=== PATIENT | female | born 1970 ===

== ENCOUNTER 2020-04-04 15:26 | Inpatient (IN) | payer OTHER ==
[2020-04-04 16:06] LABS: Basophils # (Auto) 0.1 K/mm3 (0.0-0.1); Basophils % (Auto) 1.2 % (0.0-1.8); Eosinophils % (Auto) 0.4 % (0.0-4.3); Hematocrit 26.7 % (30.3-42.9); Hemoglobin 7.9 gm/dl (10.1-14.3); Lymphocytes # (Auto) 1.7 K/mm3 (1.2-5.4); Lymphocytes % (Auto) 23.1 % (13.4-35.0); Mean Corpuscular HGB Conc 30 % (30-34); Monocytes # (Auto) 0.6 K/mm3 (0.0-0.8); Monocytes % (Auto) 7.9 % (0.0-7.3); Platelet Count 357 K/mm3 (140-440); Red Blood Count 4.37 M/mm3 (3.65-5.03); Red Cell Distribution Width 19.9 % (13.2-15.2)
[2020-04-04 16:08] LABS: Bilirubin,Urine NEG (Negative); Blood,Urine NEG (Negative); Color,Urine Yellow (Yellow); Protein,Urine <15 mg/dL mg/dL (Negative); RBC,Urine < 1.0 /HPF (0.0-6.0); Urobilinogen,Urine < 2.0 mg/dL (<2.0); WBC,Urine < 1.0 /HPF (0.0-6.0)
[2020-04-04 16:11] LABS: Mean Corpuscular Volume 61 fl (79-97)
[2020-04-04 16:32] LABS: Alanine Aminotransferase 15 units/L (7-56); Albumin 4.5 g/dL (3.9-5); BUN/Creatinine Ratio 15; Blood Urea Nitrogen 6 mg/dL (7-17); Calcium 10.8 mg/dL (8.4-10.2); Hemolysis Index 5
[2020-04-04] MEDS ORDERED: HYOSCYAMINE SUBL 0.125 MG TAB SL ONE (18:35)
[2020-04-04] MEDS ORDERED: SODIUM CHLORIDE 0.9% 1000 ML 1,000 ML IV ONE (18:35)
[2020-04-04] MEDS ORDERED: ONDANSETRON 4 MG/2 ML INJ IV ONE (18:35)
[2020-04-04] MEDS ORDERED: POTASSIUM CHLORIDE ER 20 MEQ TAB PO ONE (18:36)
--- NOTE | 2020-04-04 19:40 | Emergency Department Report ---
ED Abdominal Pain HPI - General Chief Complaint: Abdominal Pain Stated Complaint: ABD/RIB PAIN Time Seen by Provider: 04/04/20 18:15 Source: patient, implementation lead Mode of arrival: Ambulatory Limitations: Language Barrier - History of Present Illness Initial Comments: Anguillan interpretation by Sri patient regional sales representative Patient is a 49-year-old female presents emergency room with complaints of right upper quadrant abdominal pain that radiates to her back that began at 11 PM last night. She has associated nausea and vomiting. She denies any diarrhea, fever, urinary symptoms. She denies any history of issues with her gallbladder. She denies any past medical history. She denies any history of anemia. She denies any hematochezia, hematemesis, melena. She states her last menstrual cycle was March 21. She states that occasionally she does have heavy menstrual cycles. - Related Data Allergies Allergy/AdvReac Type Severity Reaction Status Date / Time No Known Allergies Allergy Verified 04/04/20 15:33 ED Review of Systems ROS: Stated complaint: ABD/RIB PAIN Other details as noted in HPI Comment: All other systems reviewed and negative ED Past Medical Hx - Past Medical History Previous Medical History?: No - Surgical History Past Surgical History?: No - Social History Smoking Status: Never Smoker Substance Use Type: None ED Physical Exam - General Limitations: Language Barrier General appearance: alert, in no apparent distress - Head Head exam: Present: atraumatic, normocephalic - Eye Eye exam: Present: normal appearance - ENT ENT exam: Present: mucous membranes moist - Respiratory Respiratory exam: Present: normal lung sounds bilaterally. Absent: respiratory distress, wheezes, rales, rhonchi, stridor, chest wall tenderness, accessory muscle use, decreased breath sounds, prolonged expiratory - Cardiovascular Cardiovascular Exam: Present: regular rate, normal rhythm, normal heart sounds. Absent: systolic murmur, diastolic murmur, rubs, gallop - GI/Abdominal GI/Abdominal exam: Present: soft, tenderness (RUQ), normal bowel sounds. Absent: distended, guarding, rebound, rigid - Neurological Exam Neurological exam: Present: alert, oriented X3 - Psychiatric Psychiatric exam: Present: normal affect, normal mood - Skin Skin exam: Present: warm, dry, intact ED Course Vital Signs 04/04/20 04/04/20 15:30 22:44 Temperature 98.1 F 98.6 F Pulse Rate 96 H 84 Respiratory 13 18 Rate Blood Pressure 148/70 Blood Pressure 124/71 [Right] O2 Sat by Pulse 100 98 Oximetry - Consultations Consultation #1: 04/04/20 20:[address] Irizarry, general surgeon who states to admit patient to the hospitalist service and she will consult on patient in the morning, she states that if her gallbladder does need surgical removal it will most likely not be until 04/06/2020, she has no further recommendations at this time, no antibiotics recommended at this time 04/04/20 20:[address] Christie hospitalist she states that she is in a CODE BLUE with another patient and will call back 04/04/20 21:[address] Christie hospitalist she will accept and resume care of patient, will admit to the hospital ED Medical Decision Making - Lab Data Result diagrams: 04/04/20 15:50 04/04/20 15:50 Lab Results 04/04/20 04/04/20 04/04/20 Range/Units 15:50 15:50 15:50 WBC 7.4 (4.5-11.0) K/mm3 RBC 4.37 (3.65-5.03) M/mm3 Hgb 7.9 L (10.1-14.3) gm/dl Hct 26.7 L (30.3-42.9) % MCV 61 L (79-97) fl MCH 18 L (28-32) pg MCHC 30 (30-34) % RDW 19.9 H (13.2-15.2) % Plt Count 357 (140-440) K/mm3 Lymph % (Auto) 23.1 (13.4-35.0) % [place] % (Auto) 7.9 H (0.0-7.3) % Eos % (Auto) 0.4 (0.0-4.3) % Baso % (Auto) 1.2 (0.0-1.8) % Lymph # 1.7 (1.2-5.4) K/mm3 [place] # 0.6 (0.0-0.8) K/mm3 Eos # 0.0 (0.0-0.4) K/mm3 Baso # 0.1 (0.0-0.1) K/mm3 Seg Neutrophils % 67.4 (40.0-70.0) % Seg Neutrophils # 5.0 (1.8-7.7) K/mm3 Sodium 137 (137-145) mmol/L Potassium 3.4 L (3.6-5.0) mmol/L Chloride 101.0 (98-107) mmol/L Carbon Dioxide 22 (22-30) mmol/L Anion Gap 17 mmol/L BUN 6 L (7-17) mg/dL Creatinine 0.4 L (0.7-1.2) mg/dL Estimated GFR > 60 ml/min BUN/Creatinine Ratio 15 % Glucose 137 H (65-100) mg/dL Calcium 10.8 H (8.4-10.2) mg/dL Total Bilirubin 0.40 (0.1-1.2) mg/dL AST 18 (5-40) units/L ALT 15 (7-56) units/L Alkaline Phosphatase 78 (35-129) units/L Total Protein 7.5 (6.3-8.2) g/dL Albumin 4.5 (3.9-5) g/dL Albumin/Globulin Ratio 1.5 % Lipase 16 (13-60) units/L HCG, Qual Negative (Negative) - Radiology Data Radiology results: report reviewed ULTRASOUND ABDOMEN, LIMITED (RIGHT UPPER QUADRANT) INDICATION: RUQ abd pain radiates to back. COMPARISON: None available. FINDINGS: Pancreas: Visualized portion shows no significant abnormality. Liver: Normal. Gallbladder: There are several subcentimeter gallstones. There is borderline gallbladder wall thickening. No pericholecystic fluid. Bile ducts: There appears to be a small stone in the cystic duct. Common Bile Duct measures 3 mm. Free fluid: None. Additional Findings: None. IMPRESSION: 1. Cholelithiasis with borderline gallbladder wall thickening. While the common duct measures 3 mm, within normal limits, there appears to be a small stone in the cystic duct. Correlate clinically for acute cholecystitis. Signer Name: Aristides Dallas MD Signed: 04/04/2020 7:52 PM Workstation Name: [id number] Transcribed By: PAYAL Dictated By: Aristides Dallas MD Electronically Authenticated By: Aristides Dallas MD Signed Date/Time: 04/04/201951 DD/ 48 TD/TT: - Medical Decision Making Anguillan interpretation by Sri, patient regional sales representative Patient is a 49-year-old female presents emergency room with complaints of right upper quadrant abdominal pain that radiates to her back that began at 11 PM last night. She has associated nausea and vomiting. She denies any diarrhea, fever, urinary symptoms. She denies any history of issues with her gallbladder. She denies any past medical history. She denies any history of anemia. She denies any hematochezia, hematemesis, melena. She states her last menstrual cycle was March 21. She states that occasionally she does have heavy menstrual cycles. Vitals are stable. On exam patient has right upper quadrant tenderness to palpation. Labs with stable microcytic anemia with H&H 7.9/26.7, mild hypokalemia repleted with kdur. RUQ US: 1. Cholelithiasis with borderline gallbladder wall thickening. While the common duct measures 3 mm,within normal limits, there appears to be a small stone in the cystic duct. Correlate clinically for acute cholecystitis. Patient given 1 L IV fluids, Zofran, morphine, levsin. She still continued to have some moderate pain. Patient given Dilaudid and her symptoms improved. Spoke with Dr. Irizarry, general surgeon who states to admit patient to the hospitalist service and she will consult on patient in the morning, she states that if her gallbladder does need surgical removal it will most likely not be until 04/06/2020, she has no further recommendations at this time, no antibiotics recommended at this time Spoke with Dr. Christie, hospitalist she will accept and resume care of patient, will admit to the hospital. Patient admitted to the hospital. - Differential Diagnosis Cholelithiasis, cholecystitis, choledocholithiasis, PUD, GERD, SBO Critical care attestation.: If time is entered above; I have spent that time in minutes in the direct care of this critically ill patient, excluding procedure time. ED Disposition Clinical Impression: Thickening of wall of gallbladder, Microcytic anemia, Hypokalemia Cholelithiasis Qualifiers: Cholelithiasis location: gallbladder and bile duct Cholecystitis presence: with cholecystitis Cholecystitis acuity: acute Biliary obstruction: without biliary obstruction Qualified Code(s): K80.62 - Calculus of gallbladder and bile duct with acute cholecystitis without obstruction Disposition: OP ADMIT IP TO THIS HOSP Is pt being admited?: Yes Does the pt Need Aspirin: No Condition: Fair Time of Disposition: 20:26
--- NOTE | 2020-04-04 19:56 | Ultrasound Report ---
ULTRASOUND ABDOMEN, LIMITED (RIGHT UPPER QUADRANT) INDICATION: RUQ abd pain radiates to back. COMPARISON: None available. FINDINGS: Pancreas: Visualized portion shows no significant abnormality. Liver: Normal. Gallbladder: There are several subcentimeter gallstones. There is borderline gallbladder wall thicken ing. No pericholecystic fluid. Bile ducts: There appears to be a small stone in the cystic duct. Common Bile Duct measures 3 mm. Free fluid: None. Additional Findings: None. IMPRESSION: 1. Cholelithiasis with borderline gallbladder wall thickening. While the common duct measures 3 mm, w ithin normal limits, there appears to be a small stone in the cystic duct. Correlate clinically for a cute cholecystitis. Signer Name: Aristides Dallas MD Signed: 04/04/2020 7:52 PM Workstation Name: [id number]
[2020-04-04] MEDS ORDERED: HYDROmorphone 1 MG/1 ML INJ IV ONE (20:25)
--- NOTE | 2020-04-04 21:10 | History and Physical Report ---
History of Present Illness History of present illness: 49-year-old woman with no medical problems comes emergency room with complaints of abdominal pain. Abdominal pain started last night which he describes as a pressure-like sensation, constant, intensity 7/10, radiating to the back, better with pain medication given in the emergency room. Admits to 1 episodes of nausea vomiting. Patient with heavy menstrual cycle, patient will be admitted for cholecystitis Review Of Systems: Constitutional: no weight loss, fever, chills Ears, eyes, nose, mouth and throat: no nasal congestion, no nasal discharge, no sinus pressure, blurry vision, diplopia Neck: No neck pain or rigidity. Cardiovascular: No palpitations, chest pain Respiratory: No shortness of breath, cough Gastrointestinal: No hematochezia Genitourinary : no dysuria, frequency Musculoskeletal: no muscle ache , joint pain Integumentary: no rash, no pruritis Neurological: no parathesias, focal weakness Endocrine: no cold or heat intolerance, no polyuria or polydipsia Hematologic/Lymphatic: no easy bruising, no easy bleeding, no gland swelling Allergic/Immunologic: no urticaria, no angioedema. PAST MEDICAL HISTORY: None PAST SURGICAL HISTORY: None SOCIAL HISTORY: Denies alcohol, tobacco, drugs FAMILY HISTORY: Hypertension Medications and Allergies Allergies Allergy/AdvReac Type Severity Reaction Status Date / Time No Known Allergies Allergy Verified 04/04/20 15:33 Exam - Physical Exam Narrative exam: Gen. appearance: Patient lying in bed, no apparent distress HEENT: Normocephalic, atraumatic, pupils equally round and reactive to light, extraocular movement intact, and no sclericterus,. No JVD or thyromegaly or nodule,neck supple, no carotid bruit ,mucous membranes moist, no exudate or erythema Heart: S1, S2, regular rate and rhythm Lungs: Clear bilaterally, breathing comfortable Abdomen: Positive bowel sounds, nontender, nondistended, no organomegaly Extremity: no edema, cyanosis, clubbing Skin: No rash, nodules, warm, dry Neuro: Cranial nerves II to XII intact, speech is fluent, moves extremities, sensory intact - Constitutional Vitals: Temp Pulse Resp BP Pulse Ox 98.1 F 96 H 13 148/70 100 04/04/20 15:30 04/04/20 15:30 04/04/20 15:30 04/04/20 15:30 04/04/20 15:30 Results - Labs CBC & Chem 7: 04/04/20 15:50 04/04/20 15:50 Labs: Abnormal lab results 04/04/20 04/04/20 04/04/20 Range/Units 15:50 15:50 Unknown Hgb 7.9 L (10.1-14.3) gm/dl Hct 26.7 L (30.3-42.9) % MCV 61 L (79-97) fl MCH 18 L (28-32) pg RDW 19.9 H (13.2-15.2) % Luce % (Auto) 7.9 H (0.0-7.3) % Potassium 3.4 L (3.6-5.0) mmol/L BUN 6 L (7-17) mg/dL Creatinine 0.4 L (0.7-1.2) mg/dL Glucose 137 H (65-100) mg/dL Calcium 10.8 H (8.4-10.2) mg/dL Urine pH 8.0 H (5.0-7.0) - Imaging and Cardiology US - abdomen: report reviewed Assessment and Plan Assessment Acute cholecystitis Bowel rest, IV fluid, IV morphine Surgery was consulted to see the patient Hypokalemia, repleted Anemia Continue to monitor DVT prophylaxis
[2020-04-04] MEDS ORDERED: ONDANSETRON 4 MG/2 ML INJ IV PRN (21:14)
[2020-04-04] MEDS ORDERED: ACETAMINOPHEN 325 MG TAB PO PRN (21:14)
[2020-04-05] MEDS: SODIUM CHLORIDE 0.9% 1000 ML 1,000 ML IV SCH ×3 (00:08→15:29)
[2020-04-05] MEDS: MORPHINE 2 MG/1 ML INJ IV PRN ×2 (00:08→06:23)
[2020-04-05 05:56] LABS: Basophils # (Auto) 0.1 K/mm3 (0.0-0.1); Basophils % (Auto) 0.9 % (0.0-1.8); Eosinophils % (Auto) 0.1 % (0.0-4.3); Hematocrit 24.6 % (30.3-42.9); Hemoglobin 7.4 gm/dl (10.1-14.3); Lymphocytes # (Auto) 1.4 K/mm3 (1.2-5.4); Lymphocytes % (Auto) 13.6 % (13.4-35.0); Mean Corpuscular HGB Conc 30 % (30-34); Monocytes # (Auto) 0.9 K/mm3 (0.0-0.8); Monocytes % (Auto) 8.6 % (0.0-7.3); Platelet Count 303 K/mm3 (140-440); Red Blood Count 4.01 M/mm3 (3.65-5.03)
[2020-04-05 05:58] LABS: Mean Corpuscular Volume 61 fl (79-97)
[2020-04-05 06:07] LABS: BUN/Creatinine Ratio 13; Blood Urea Nitrogen 5 mg/dL (7-17); Calcium 9.6 mg/dL (8.4-10.2); Hemolysis Index 1
--- NOTE | 2020-04-05 08:22 | Consultation ---
History of Present Illness Consult date: 04/05/20 Reason for consult: gallstones - History of present illness History of present illness: 49 year old female presents to ED with a two day history of unrelenting RUQ, epigastric and back pain. She says she has had similar pain for years, but the pain never lasted longer than 20 minutes. She has had one episode of nausea and vomiting. She had an US that showed gallstones and gallbladder wall thickening. Her pain today is unchanged from yesterday and she would like to have her gallbladder removed. Past History Past Medical History: anemia Past Surgical History: No surgical history Social history: no significant social history Medications and Allergies Allergies Allergy/AdvReac Type Severity Reaction Status Date / Time No Known Allergies Allergy Verified 04/04/20 15:33 Active Meds: Active Medications Acetaminophen (Tylenol) 650 mg PO Q4H PRN PRN Reason: Pain MILD(1-3)/Fever >100.5/FINNEGAN Enoxaparin Sodium (Enoxaparin) 40 mg SUB-Q QDAY@1000 SOBIA Sodium Chloride (Nacl 0.9% 1000 Ml) 1,000 mls @ 125 mls/hr IV DIRECT [facility] Last Admin: 04/05/20 06:24 Dose: 125 mls/hr Documented by: Morphine Sulfate (Morphine) 2 mg IV Q4H PRN PRN Reason: Pain, Moderate (4-6) Last Admin: 04/05/20 06:23 Dose: 2 mg Documented by: Ondansetron HCl (Zofran) 4 mg IV Q4H PRN PRN Reason: Nausea And Vomiting Sodium Chloride (Sodium Chloride Flush Syringe 10 Ml) 10 ml IV BID [facility] Last Admin: 04/05/20 00:10 Dose: 10 ml Documented by: Sodium Chloride (Sodium Chloride Flush Syringe 10 Ml) 10 ml IV PRN PRN PRN Reason: LINE FLUSH Review of Systems - Constitutional no weight loss, no fever, no chills - Cardiovascular no chest pain - Respiratory no cough - Gastrointestinal abdominal pain, nausea, vomiting - Genitourinary Genitourinary: no dysuria Exam Vital Signs Temp Pulse Resp BP Pulse Ox 98.1 F 96 H 13 148/70 100 04/04/20 15:30 04/04/20 15:30 04/04/20 15:30 04/04/20 15:30 04/04/20 15:30 - General physical appearance Positive: well developed, no distress, moderate pain - Respiratory Positive: normal expansion, normal respiratory effort - Cardiovascular Rhythm: regular Heart Sounds: Present: S1 & S2 - Extremities Extremities: no ischemia - Abdomen Abdomen: Present: soft, other (tender to palpation in the RUQ and epigatric area). Absent: distended, guarding, rigid Results - Labs 04/05/20 04:36 04/05/20 04:36 Abnormal lab results 04/04/20 04/04/20 04/04/20 Range/Units 15:50 15:50 Unknown Hgb 7.9 L (10.1-14.3) gm/dl Hct 26.7 L (30.3-42.9) % MCV 61 L (79-97) fl MCH 18 L (28-32) pg RDW 19.9 H (13.2-15.2) % [place] % (Auto) 7.9 H (0.0-7.3) % [place]ucks # (0.0-0.8) K/mm3 Seg Neutrophils % (40.0-70.0) % Potassium 3.4 L (3.6-5.0) mmol/L BUN 6 L (7-17) mg/dL Creatinine 0.4 L (0.7-1.2) mg/dL Glucose 137 H (65-100) mg/dL Calcium 10.8 H (8.4-10.2) mg/dL Urine pH 8.0 H (5.0-7.0) 04/05/20 04/05/20 Range/Units 04:36 04:36 Hgb 7.4 L (10.1-14.3) gm/dl Hct 24.6 L (30.3-42.9) % MCV 61 L (79-97) fl MCH 18 L (28-32) pg RDW 20.0 H (13.2-15.2) % [place] % (Auto) 8.6 H (0.0-7.3) % [place] # 0.9 H (0.0-0.8) K/mm3 Seg Neutrophils % 76.8 H (40.0-70.0) % Potassium (3.6-5.0) mmol/L BUN 5 L (7-17) mg/dL Creatinine 0.4 L (0.7-1.2) mg/dL Glucose 104 H (65-100) mg/dL Calcium (8.4-10.2) mg/dL Urine pH (5.0-7.0) Diabetes panel 04/04/20 04/05/20 Range/Units 15:50 04:36 Sodium 137 138 (137-145) mmol/L Potassium 3.4 L 4.1 D (3.6-5.0) mmol/L Chloride 101.0 104.4 (98-107) mmol/L Carbon Dioxide 22 22 (22-30) mmol/L BUN 6 L 5 L (7-17) mg/dL Creatinine 0.4 L 0.4 L (0.7-1.2) mg/dL Glucose 137 H 104 H (65-100) mg/dL Calcium 10.8 H 9.6 (8.4-10.2) mg/dL AST 18 (5-40) units/L ALT 15 (7-56) units/L Alkaline Phosphatase 78 (35-129) units/L Total Protein 7.5 (6.3-8.2) g/dL Albumin 4.5 (3.9-5) g/dL Calcium panel 04/04/20 04/05/20 Range/Units 15:50 04:36 Calcium 10.8 H 9.6 (8.4-10.2) mg/dL Albumin 4.5 (3.9-5) g/dL Pituitary panel 04/04/20 04/05/20 Range/Units 15:50 04:36 Sodium 137 138 (137-145) mmol/L Potassium 3.4 L 4.1 D (3.6-5.0) mmol/L Chloride 101.0 104.4 (98-107) mmol/L Carbon Dioxide 22 22 (22-30) mmol/L BUN 6 L 5 L (7-17) mg/dL Creatinine 0.4 L 0.4 L (0.7-1.2) mg/dL Glucose 137 H 104 H (65-100) mg/dL Calcium 10.8 H 9.6 (8.4-10.2) mg/dL Adrenal panel 04/04/20 04/05/20 Range/Units 15:50 04:36 Sodium 137 138 (137-145) mmol/L Potassium 3.4 L 4.1 D (3.6-5.0) mmol/L Chloride 101.0 104.4 (98-107) mmol/L Carbon Dioxide 22 22 (22-30) mmol/L BUN 6 L 5 L (7-17) mg/dL Creatinine 0.4 L 0.4 L (0.7-1.2) mg/dL Glucose 137 H 104 H (65-100) mg/dL Calcium 10.8 H 9.6 (8.4-10.2) mg/dL Total Bilirubin 0.40 (0.1-1.2) mg/dL AST 18 (5-40) units/L ALT 15 (7-56) units/L Alkaline Phosphatase 78 (35-129) units/L Total Protein 7.5 (6.3-8.2) g/dL Albumin 4.5 (3.9-5) g/dL - Imaging US - abdomen: report reviewed, image reviewed Assessment and Plan 49 year old female with clinical long standing hx of symptomatic cholelithiasis, with possible acute cholecystitis. afebrile, stable. Explained condition and treatment plan with patient who expressed understanding of the risk and benefits and wants to proceed with surgery. She signed informed consent and is scheduled for lap guillermina tomorrow. Pt is anemic but asymptomatic. She admits to a hx of anemia but denies any GI bleeding or other sources outside or heavy menses at times. Will monitor closely after surgery. Evaluation and treatment of this patient was during the time of the national and sate emergency arising from the COVID-19 coronavirus pandemic. The hospital is functioning under the conditions of the COVID-19 coronavirus public health crisis. Treatments and procedures performed meet the current and available best practice and guidance for patients during the COVID-19 pandemic.
[2020-04-05] MEDS ORDERED: ENOXAPARIN 30 MG/0.3 ML INJ SUB-Q SCH (10:00)
[2020-04-05] MEDS: ENOXAPARIN 40 MG/0.4 ML INJ SUB-Q SCH (10:40)
--- NOTE | 2020-04-05 21:53 | Progress Note ---
Assessment and Plan - Patient Problems (1) Acute cholecystitis Current Visit: Yes Status: Acute Plan to address problem: For cholecystectomy tomorrow Keep n.p.o. Pain control IV fluids (2) Cholelithiasis Current Visit: Yes Status: Acute Qualifiers: Cholelithiasis location: gallbladder and bile duct Cholecystitis presence: with cholecystitis Cholecystitis acuity: acute Biliary obstruction: without biliary obstruction Qualified Code(s): K80.62 - Calculus of gallbladder and bile duct with acute cholecystitis without obstruction Plan to address problem: For surgery tomorrow (3) Hypokalemia Current Visit: Yes Status: Acute Plan to address problem: Supplemented (4) Microcytic anemia Current Visit: Yes Status: Chronic Plan to address problem: Secondary to menorrhagia Work-up as outpatient (5) DVT prophylaxis Current Visit: Yes Status: Acute Plan to address problem: Heparin and GI prophylaxis Subjective Date of service: 04/05/20 Principal diagnosis: Acute cholecystitis Interval history: 49-year-old woman with no medical problems comes emergency room with complaints of abdominal pain. Abdominal pain started last night which he describes as a pressure-like sensation, constant, intensity 7/10, radiating to the back, better with pain medication given in the emergency room. Admits to 1 episodes of nausea vomiting. Patient with heavy menstrual cycle, patient admitted for cholecystitis Objective - Constitutional Vitals: Vital Signs - 12hr 04/05/20 04/05/20 04/05/20 11:19 15:00 17:00 Temperature 98.6 F 98.6 F Pulse Rate 89 81 82 Respiratory 19 18 Rate Blood Pressure 115/66 Blood Pressure 103/61 [Right] O2 Sat by Pulse 100 98 Oximetry 04/05/20 21:48 Temperature Pulse Rate Respiratory Rate Blood Pressure Blood Pressure [Right] O2 Sat by Pulse 99 Oximetry General appearance: Present: no acute distress, well-nourished - EENT Eyes: PERRL, EOM intact ENT: hearing intact, clear oral mucosa Ears: bilateral: normal - Neck Neck: supple, normal ROM - Respiratory Respiratory effort: normal Respiratory: bilateral: CTA - Breasts Breasts: normal - Cardiovascular Heart rate: 78 Rhythm: regular Heart Sounds: Present: S1 & S2. Absent: gallop, rub Extremities: pulses intact, No edema, normal color, Full ROM - Gastrointestinal General gastrointestinal: Present: soft, tender, non-distended, normal bowel sounds Localized gastrointestinal: tender: RUQ, guarding: RUQ - Genitourinary Female genitourinary: normal - Integumentary Integumentary: clear, warm, dry - Musculoskeletal Musculoskeletal: 1, strength equal bilaterally - Neurologic Neurologic: moves all extremities - Psychiatric Psychiatric: memory intact, appropriate mood/affect, intact judgment & insight - Labs CBC & Chem 7: 04/05/20 04:36 04/05/20 04:36 Labs: Abnormal lab results 04/05/20 04/05/20 Range/Units 04:36 04:36 Hgb 7.4 L (10.1-14.3) gm/dl Hct 24.6 L (30.3-42.9) % MCV 61 L (79-97) fl MCH 18 L (28-32) pg RDW 20.0 H (13.2-15.2) % [place] % (Auto) 8.6 H (0.0-7.3) % [place] # 0.9 H (0.0-0.8) K/mm3 Seg Neutrophils % 76.8 H (40.0-70.0) % BUN 5 L (7-17) mg/dL Creatinine 0.4 L (0.7-1.2) mg/dL Glucose 104 H (65-100) mg/dL
[2020-04-06] MEDS: SODIUM CHLORIDE 0.9% 1000 ML 1,000 ML IV SCH ×2 (02:31→21:22)
[2020-04-06] MEDS ORDERED: HYDROmorphone 1 MG/1 ML INJ IV PRN (07:23)
[2020-04-06] MEDS ORDERED: ONDANSETRON 4 MG/2 ML INJ IV PRN (07:23)
[2020-04-06] MEDS ORDERED: BUPIVACAINE/PF (0.5%) 5 MG/1 ML 30 ML VIAL INFILTRATI ONE (07:46)
[2020-04-06] MEDS ORDERED: LIDOCAINE (1%) 10 MG/1 ML VIAL 20 ML MDV ONE (07:46)
[2020-04-06] MEDS ORDERED: HYDROmorphone 1 MG/1 ML INJ ONE (07:52)
[2020-04-06] MEDS ORDERED: propofoL 200 MG/20 ML VIAL IV ONE (07:53)
[2020-04-06] MEDS ORDERED: SUCCINYLCHOLINE CHLORIDE 200 MG/10 ML INJ MDV ONE (07:55)
[2020-04-06] MEDS ORDERED: LIDOCAINE MPF (2%) 20 MG/1 ML VIAL 5 ML ONE (07:57)
[2020-04-06] MEDS ORDERED: ROCURONIUM 50 MG/5 ML INJ IV ONE (07:58)
--- NOTE | 2020-04-06 08:23 | Anesthesia Consultation ---
Anesthesia Consult and Med Hx Date of service: 04/06/20 - Airway Anesthetic Teeth Evaluation: Good, Dentures ROM Head & Neck: Adequate Mental/Hyoid Distance: Adequate Mallampati Class: Class II Intubation Access Assessment: Probably Good - Pulmonary Exam CTA: Yes - Cardiac Exam Cardiac Exam: RRR - Pre-Operative Health Status ASA Pre-Surgery Classification: ASA1 Proposed Anesthetic Plan: General - Other Systems Hx Cancer: No
--- NOTE | 2020-04-06 08:24 | Anesthesia Day of Surgery ---
Anesthesia Day of Surgery - Day of Surgery Patient Examined: Yes Patient H&P Reviewed: Yes Patient is NPO: Yes
[2020-04-06] MEDS ORDERED: ceFAZolin 1 GM VIAL ONE ×2 (08:54)
[2020-04-06] MEDS ORDERED: SODIUM CHLORIDE 0.9% 1000 ML 1,000 ML ONE ×2 (08:59→10:39)
[2020-04-06] MEDS ORDERED: BUPIVACAINE-EPINEPHRINE/PF 0.5%-1:200,000 (30 ML) VIAL INFILTRATI ONE (09:00)
[2020-04-06] MEDS ORDERED: LIDOCAINE (1%) 10 MG/1 ML VIAL 20 ML MDV INFILTRATI ONE (09:00)
[2020-04-06] MEDS ORDERED: SODIUM CHLORIDE 0.9% IRR 1,500 ML BOTTLE IR ONE (09:01)
[2020-04-06] MEDS ORDERED: SODIUM CHLORIDE 0.9% IRRIG SOLN 2000 ML IR ONE (09:33)
[2020-04-06] MEDS ORDERED: NEOSTIGMINE 10MG/10 ML INJ MDV ONE (09:49)
[2020-04-06] MEDS ORDERED: GLYCOPYRROLATE 0.4 MG/2 ML INJ ONE (09:49)
[2020-04-06] MEDS: ENOXAPARIN 40 MG/0.4 ML INJ SUB-Q SCH (10:00)
[2020-04-06] MEDS ORDERED: ONDANSETRON 4 MG/2 ML INJ ONE (10:03)
[2020-04-06] MEDS ORDERED: KETOROLAC 30 MG/1 ML INJ ONE ×2 (10:03)
--- NOTE | 2020-04-06 10:24 | Operative Report ---
Operative Report Operative Report: Date: 04/06/2020 Surgeon: Crow Irizarry MD Chicken Handler Surgeon: Vika Carver DO Procedure: laparoscopic cholecystectomy Anesthesia: General with endotracheal tube intubation Preop diagnosis: Acute cholecystitis/cholelithiasis Postop diagnosis: Same as preop Specimen: Gallbladder with contents Complications: None immediate Findings: An edematous inflamed gallbladder with hydrops Estimated blood loss: Less than 10 mL Indication: Patient is a 49-year-old female who presented to the emergency room with a several day history of unrelenting right upper quadrant pain. Ultrasound showed thickened gallbladder wall consistent with cholecystitis and gallstones. Patient was consented for laparoscopic cholecystectomy, she signed informed consent and expressed understanding of the risk and benefits. Details of procedure: Patient was brought in the OR suite laid in supine position. Bilateral lower extremity SCDs were placed. General anesthesia was induced via successful endotracheal tube intubation. Patient abdomen was prepped and draped in sterile fashion. After timeout a stab incision was placed at the umbilicus with a Veress needle. The abdomen was insufflated to a pressure of 15 mmHg. After which using Optiview technique a 5 mm trocar was placed just superior to the umbilicus. There was noted to be no gross injury to any intra-abdominal structures. 3 working trochars were placed under direct visualization. A 12 mm in the epigastric area, and 2 5 mm trochars along the subcostal region. The gallbladder was noted to be grossly distended and difficult to grasp. Stone aspiration needle was used to aspirate approximately 30 cc of clear fluid consistent with hydrops of the gallbladder. The fundus of the gallbladder was lifted superiorly and the infundibulum was retracted laterally and inferiorly. There was noted to be a large tubular structure at the level of the infundibulum that was thought to be the common bile duct. At this time aside to do a dome down technique, and the gallbladder was dissected free from the liver bed fossa with electrocautery. The peritoneum was dissected off of the infundibulum to help better delineate the anatomy. A small gastric artery was taken with electrocautery and there was noted to be a very short cystic duct. At this time was the anatomy was identified and endoscopic stapler was used to transect proximal to the gallbladder across the cystic duct. The staple line was found to be intact with no injury appreciated to the common bile duct or hepatic ductal structures. The liver bed was inspected, pinpoint cautery was used for hemostasis without difficulty. The right upper quadrant was irrigated with normal saline aspirated. The gallbladder was then placed in endoscopic bag. The abdomen was then desufflated using guidelines being used for laparoscopic cases during coronavirus pandemic with the aid of a smoke evacuator machine. The trochars were removed. The gallbladder was noted to have very large stones was retrieved via the epigastric port site after the fascia was extended. The muscle and fascia in the epigastric area were then closed with a running 0 Vicryl. All skin incisions were closed with 4-0 Monocryl 50-50 lidocaine Marcaine was used at all incision sites which were covered with Dermabond. Patient was awoken extubated and taken to recovery stable condition. All counts were correct.
--- NOTE | 2020-04-06 11:10 | Post Anesthesia Evaluation ---
- Post Anesthesia Evaluation Patient Participated: Yes Airway Patent: Yes Stable Respiratory Function: Yes Nausea/Vomiting: No Temp > 96.8F: Yes Pain Manageable: Yes Adequeate Hydration: Yes Anesthesia Complications: No
[2020-04-06] MEDS: KETOROLAC 30 MG/1 ML INJ IV SCH ×3 (18:48→23:28)
[2020-04-06] MEDS: oxyCODONE /ACETAMINOPHEN 5-325MG TAB PO PRN (19:05)
[2020-04-07 04:41] LABS: Basophils % (Auto) 0.4 % (0.0-1.8); Eosinophils % (Auto) 0.1 % (0.0-4.3); Hematocrit 21.8 % (30.3-42.9); Hemoglobin 6.5 gm/dl (10.1-14.3); Lymphocytes # (Auto) 1.2 K/mm3 (1.2-5.4); Lymphocytes % (Auto) 12.9 % (13.4-35.0); Mean Corpuscular HGB Conc 30 % (30-34); Monocytes % (Auto) 10.2 % (0.0-7.3); Platelet Count 225 K/mm3 (140-440); Red Blood Count 3.51 M/mm3 (3.65-5.03); Red Cell Distribution Width 19.3 % (13.2-15.2)
[2020-04-07 04:50] LABS: Mean Corpuscular Volume 62 fl (79-97)
[2020-04-07] MEDS: KETOROLAC 30 MG/1 ML INJ IV SCH ×2 (04:59→12:00)
[2020-04-07 05:01] LABS: Alanine Aminotransferase 19 units/L (7-56); Albumin 3.2 g/dL (3.9-5); BUN/Creatinine Ratio 10; Blood Urea Nitrogen 4 mg/dL (7-17); Calcium 9.1 mg/dL (8.4-10.2); Hemolysis Index 0
--- NOTE | 2020-04-07 08:48 | Progress Note ---
Assessment and Plan - Patient Problems (1) Acute cholecystitis Current Visit: Yes Status: Acute Plan to address problem: For cholecystectomy tomorrow Keep n.p.o. Pain control IV fluids (2) Cholelithiasis Current Visit: Yes Status: Acute Qualifiers: Cholelithiasis location: gallbladder and bile duct Cholecystitis presence: with cholecystitis Cholecystitis acuity: acute Biliary obstruction: without biliary obstruction Qualified Code(s): K80.62 - Calculus of gallbladder and bile duct with acute cholecystitis without obstruction Plan to address problem: For surgery tomorrow (3) Hypokalemia Current Visit: Yes Status: Acute Plan to address problem: Supplemented (4) Microcytic anemia Current Visit: Yes Status: Chronic Plan to address problem: Secondary to menorrhagia Work-up as outpatient (5) DVT prophylaxis Current Visit: Yes Status: Acute Plan to address problem: Heparin and GI prophylaxis Subjective Date of service: 04/06/20 Principal diagnosis: Acute cholecystitis Interval history: 49-year-old woman with no medical problems comes emergency room with complaints of abdominal pain. Abdominal pain started last night which he describes as a pressure-like sensation, constant, intensity 7/10, radiating to the back, better with pain medication given in the emergency room. Admits to 1 episodes of nausea vomiting. Patient with heavy menstrual cycle, patient admitted for cholecystitis S/p Cholecystectomy Post op doing well.On clears Objective - Constitutional Vitals: Vital Signs - 12hr 04/07/20 04/07/20 04/07/20 01:00 08:00 08:03 Temperature 98.2 F Pulse Rate 80 84 Respiratory 18 Rate Respiratory 18 Rate [abdomen] Blood Pressure 99/61 [Right] O2 Sat by Pulse 98 Oximetry General appearance: Present: no acute distress, well-nourished - EENT Eyes: PERRL, EOM intact ENT: hearing intact, clear oral mucosa Ears: bilateral: normal - Neck Neck: supple, normal ROM - Respiratory Respiratory effort: normal Respiratory: bilateral: CTA - Breasts Breasts: normal - Cardiovascular Rhythm: regular Heart Sounds: Present: S1 & S2. Absent: gallop, rub Extremities: pulses intact, No edema, normal color, Full ROM - Gastrointestinal General gastrointestinal: Present: soft, non-tender, non-distended, normal bowel sounds - Genitourinary Female genitourinary: normal - Integumentary Integumentary: clear, warm, dry - Musculoskeletal Musculoskeletal: 1, strength equal bilaterally - Neurologic Neurologic: moves all extremities - Psychiatric Psychiatric: memory intact, appropriate mood/affect, intact judgment & insight - Labs CBC & Chem 7: 04/07/20 03:46 04/07/20 03:46 Labs: Abnormal lab results 04/07/20 04/07/20 Range/Units 03:46 03:46 RBC 3.51 L (3.65-5.03) M/mm3 Hgb 6.5 L (10.1-14.3) gm/dl Hct 21.8 L (30.3-42.9) % MCV 62 L (79-97) fl MCH 18 L (28-32) pg RDW 19.3 H (13.2-15.2) % Lymph % (Auto) 12.9 L (13.4-35.0) % Duc[place]ne % (Auto) 10.2 H (0.0-7.3) % [place]ne # 1.0 H (0.0-0.8) K/mm3 Seg Neutrophils % 76.4 H (40.0-70.0) % Potassium 3.4 L (3.6-5.0) mmol/L BUN 4 L (7-17) mg/dL Creatinine 0.4 L (0.7-1.2) mg/dL Total Protein 5.8 L D (6.3-8.2) g/dL Albumin 3.2 L (3.9-5) g/dL
[2020-04-07] MEDS: oxyCODONE /ACETAMINOPHEN 5-325MG TAB PO PRN (13:02)
[2020-04-07] MEDS: ENOXAPARIN 40 MG/0.4 ML INJ SUB-Q SCH (13:04)
--- NOTE | 2020-04-07 14:47 | Progress Note ---
Assessment and Plan POD#1 s/p lap guillermina, afebrile and stable. Recovering well. Chronic asymptomatic anemia with slight post op decline in H/H. OK to advance diet as tolerated and can shower. Pt to follow up with me in the office in two weeks. [phone] Subjective Date of service: 04/07/20 Patient Reports: Positive: feels better (no acute events. Pt says she feels full after a few bites but is tolerating. She has the most discomfort in her epigastric area where her largest incision is. ) Objective Vital Signs - 12hr 04/07/20 04/07/20 04/07/20 08:00 08:03 09:00 Temperature 98.2 F Pulse Rate 84 77 Respiratory 18 Rate Respiratory 18 Rate [abdomen] Blood Pressure 99/61 [Right] O2 Sat by Pulse 98 Oximetry 04/07/20 11:00 Temperature 98.4 F Pulse Rate 97 H Respiratory 20 Rate Respiratory Rate [abdomen] Blood Pressure 114/64 [Right] O2 Sat by Pulse 100 Oximetry - General physical appearance well developed, well nourished, no distress, no pain - Respiratory normal expansion, normal respiratory effort - Abdomen soft, other (incisions c/d/i, appropriatley tender to palation) - Labs 04/07/20 03:46 04/07/20 03:46 Diabetes panel 04/07/20 Range/Units 03:46 Sodium 139 (137-145) mmol/L Potassium 3.4 L (3.6-5.0) mmol/L Chloride 106.6 (98-107) mmol/L Carbon Dioxide 24 (22-30) mmol/L BUN 4 L (7-17) mg/dL Creatinine 0.4 L (0.7-1.2) mg/dL Glucose 91 (65-100) mg/dL Calcium 9.1 (8.4-10.2) mg/dL AST 20 (5-40) units/L ALT 19 (7-56) units/L Alkaline Phosphatase 70 (35-129) units/L Total Protein 5.8 L D (6.3-8.2) g/dL Albumin 3.2 L (3.9-5) g/dL Calcium panel 04/07/20 Range/Units 03:46 Calcium 9.1 (8.4-10.2) mg/dL Albumin 3.2 L (3.9-5) g/dL Pituitary panel 04/07/20 Range/Units 03:46 Sodium 139 (137-145) mmol/L Potassium 3.4 L (3.6-5.0) mmol/L Chloride 106.6 (98-107) mmol/L Carbon Dioxide 24 (22-30) mmol/L BUN 4 L (7-17) mg/dL Creatinine 0.4 L (0.7-1.2) mg/dL Glucose 91 (65-100) mg/dL Calcium 9.1 (8.4-10.2) mg/dL Adrenal panel 04/07/20 Range/Units 03:46 Sodium 139 (137-145) mmol/L Potassium 3.4 L (3.6-5.0) mmol/L Chloride 106.6 (98-107) mmol/L Carbon Dioxide 24 (22-30) mmol/L BUN 4 L (7-17) mg/dL Creatinine 0.4 L (0.7-1.2) mg/dL Glucose 91 (65-100) mg/dL Calcium 9.1 (8.4-10.2) mg/dL Total Bilirubin 0.50 (0.1-1.2) mg/dL AST 20 (5-40) units/L ALT 19 (7-56) units/L Alkaline Phosphatase 70 (35-129) units/L Total Protein 5.8 L D (6.3-8.2) g/dL Albumin 3.2 L (3.9-5) g/dL
--- NOTE | 2020-04-07 16:51 | Discharge Summary ---
Providers - Providers Date of Admission: 04/04/20 21:12 Date of discharge: 04/07/20 Attending physician: ADRIAN DUPREE 04/04/20 20:19 Consult to Physician [CONS] Stat Comment: Consulting Provider: ESTHER WESLEY Physician Instructions: Reason For Exam: cholelithiasis with gallbladder wall thickening Primary care physician: MANAGER WEB Hospitalization Condition: Fair Procedures: S/p Cholecystectomy Hospital course: Subjective Date of service: 04/07/20 Principal diagnosis: Acute cholecystitis 49-year-old woman with no medical problems comes emergency room with complaints of abdominal pain. Abdominal pain started last night which he describes as a pressure-like sensation, constant, intensity 7/10, radiating to the back, better with pain medication given in the emergency room. Admits to 1 episodes of nausea vomiting. Patient with heavy menstrual cycle, patient admitted for cholecystitis S/p Cholecystectomy Post op doing well.On clears (1) Acute cholecystitis Current Visit: Yes Status: Acute Plan to address problem: S/p cholecystectomy Clears and advance (2) Cholelithiasis Current Visit: Yes Status: Acute Qualifiers: Cholelithiasis location: gallbladder and bile duct Cholecystitis presence: with cholecystitis Cholecystitis acuity: acute Biliary obstruction: without biliary obstruction Qualified Code(s): K80.62 - Calculus of gallbladder and bile duct with acute cholecystitis without obstruction Plan to address problem: Had cholecystectomy (3) Hypokalemia Current Visit: Yes Status: Acute Plan to address problem: Supplemented (4) Microcytic anemia Current Visit: Yes Status: Chronic Plan to address problem: Secondary to menorrhagia Work-up as outpatient Iron tablets No need for blood transfusion Disposition: TO HOME OR SELFCARE Core Measure Documentation - Palliative Care Palliative Care/ Comfort Measures: Not Applicable - Core Measures Any of the following diagnoses?: none Exam - Constitutional Vitals: Temp Pulse Resp BP Pulse Ox 98.7 F 86 20 109/60 98 04/07/20 16:19 04/07/20 16:19 04/07/20 16:19 04/07/20 16:19 04/07/20 16:19 General appearance: Present: no acute distress, well-nourished - EENT Eyes: Present: PERRL ENT: hearing intact, clear oral mucosa - Neck Neck: Present: supple, normal ROM - Respiratory Respiratory effort: normal Respiratory: bilateral: CTA - Cardiovascular Heart rate: 78 Rhythm: regular Heart Sounds: Present: S1 & S2. Absent: rub, click - Extremities Extremities: pulses symmetrical, No edema Peripheral Pulses: within normal limits - Abdominal General gastrointestinal: Present: soft, non-tender, non-distended, normal bowel sounds Female genitourinary: Present: normal - Integumentary Integumentary: Present: clear, warm, dry - Musculoskeletal Musculoskeletal: gait normal, strength equal bilaterally - Psychiatric Psychiatric: appropriate mood/affect, intact judgment & insight - Neurologic Neurologic: CNII-XII intact, moves all extremities Plan Activity: no restrictions Diet: clear liquids Follow up with: PRIMARY CARE, [Primary Care Provider] - 3-5 Days ESTHER WESLEY MD [Staff Physician] - 7 Days Prescriptions: oxyCODONE /ACETAMINOPHEN [Percocet 5/325] 2 tab PO Q6HR PRN #20 tablet PRN Reason: Pain
--- NOTE | 2020-04-07 16:51 | Death Summary ---
Summary - Providers Consults: 04/04/20 20:19 Consult to Physician [CONS] Stat Comment: Consulting Provider: ESTHER WESELY Physician Instructions: Reason For Exam: cholelithiasis with gallbladder wall thickening Attending: ADRIAN DUPREE - summary Date of admission: 04/04/20 21:12 - Final diagnosis (1) Acute cholecystitis Note: Final diagnosis: (2) Cholelithiasis Qualifiers: Cholelithiasis location: gallbladder and bile duct Cholecystitis presence: with cholecystitis Cholecystitis acuity: acute Biliary obstruction: without biliary obstruction Qualified Code(s): K80.62 - Calculus of gallbladder and bile duct with acute cholecystitis without obstruction Note: Final diagnosis: (3) Hypokalemia Note: Final diagnosis: (4) Microcytic anemia Note: Final diagnosis: (5) DVT prophylaxis Note: Final diagnosis:
[2020-04-07] MEDS ORDERED: POTASSIUM CHLORIDE ER 20 MEQ TAB PO SCH (17:00)
[2020-04-08 11:29] VITALS: BP 109/60
== END 2020-04-07 21:17 | disposition home or self-care (01) | DRG 419 ==
LOC: ED 15:26 → 4A 21:12
PROVIDERS: ADMIT Internal Medicine; ATTEND Internal Medicine
PROC: 0FT44ZZ Resection of Gallbladder, Percutaneous Endoscopic Approach (ICD-10-PCS; principal; 2020-04-06)
DX: K80.62 Calculus of gallbladder and bile duct with acute cholecystitis without obstruction (principal); E87.6 Hypokalemia; D64.9 Anemia, unspecified; Z82.49 Family history of ischemic heart disease and other diseases of the circulatory system
CPT/HCPCS: 36415; 76705; 80048; 80053; 81001; 83690; 84703; 85025; 86850; 86900; 86901; 88304; G0378; A4217; J0330; J0690; J1170; J1650; J1885; J1956; J2270; J2405; J2704; J2710; J7030